=== PATIENT | male | born 1950 ===

== ENCOUNTER 2018-08-23 18:12 | Emergency (ER) | payer MEDICARE, OTHER ==
[~2018-08-23] VITALS: Ht 182.9 cm; Wt 114.0 kg
[2018-08-23] MEDS ORDERED: OXYC30TA85 PO (18:59)
[2018-08-23] MEDS ORDERED: CARI350T PO (18:59)
[2018-08-23 19:40] VITALS: BP 161/86
== END 2018-08-23 19:43 | disposition home or self-care (01) ==
LOC: ER 18:13
DX: S00.83XA Contusion of other part of head, initial encounter (principal); G89.29 Other chronic pain; Z98.890 Other specified postprocedural states; Y04.0XXA Assault by unarmed brawl or fight, initial encounter; Y93.89 Activity, other specified; Y92.89 Other specified places as the place of occurrence of the external cause; Y99.9 Unspecified external cause status
CPT/HCPCS: 99283